=== PATIENT | female | born 1970 | race Caucasian/White ===

== ENCOUNTER → 2021-01-07 10:09 | Outpatient (CLI) | payer MEDICARE, SELFPAY | PROVIDERS: Visit Provider Nurse Practitioner | DX: Z20.822 Contact with and (suspected) exposure to COVID-19 (principal) | CPT/HCPCS: C9803; U0003; U0005 ==

== ENCOUNTER 2022-09-09 18:59 | Emergency (ER) | payer MEDICAID, SELFPAY ==
[2022-09-09 19:00] VITALS: BP 115/70; PULSE 87; RESP 18; TEMP 36.7; O2SAT 98; BMI 27.4
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
[2022-09-09 19:49] VITALS: BP 113/79; PULSE 82; RESP 18; TEMP 36.7; O2SAT 98
== END 2022-09-09 19:51 | disposition home or self-care (01) ==
PROVIDERS: Emergency Provider Emergency Medicine
DX: S46.002A Unspecified injury of muscle(s) and tendon(s) of the rotator cuff of left shoulder, initial encounter (principal); V89.2XXA Person injured in unspecified motor-vehicle accident, traffic, initial encounter; F17.200 Nicotine dependence, unspecified, uncomplicated
CPT/HCPCS: 73030; 96372; 99283; 99284

== ENCOUNTER 2024-12-15 16:19 | Emergency (ER) | payer OTHER, SELFPAY ==
--- NOTE | 2024-12-15 16:23 | ED_ITS ---
<Statement entered by Tarsha Corbett DO - 12/16/24 19:59> I was consulted by the JOSH, and we discussed the complexity of problems being addressed. I approve the treatment and management plan for this patient's care in the emergency department, thus performing a substantial portion of the medical decision making. Tarsha Corbett DO Discharge Plan Disposition Patient Disposition: Home, Self-Care Condition: Good Prescriptions Prescriptions: No Action ketorolac 10 mg Tablet 10 mg PO Q6H PRN (Reason: pain.) Qty: 8 0RF Referrals Follow up/Referrals: Provider,Referral, MD [Primary Care Provider, Medical] - See instructions Activity Restrictions/Add. Instructions Additional Instructions/Restrictions: I recommend rest ice ibuprofen as needed for symptomatic relief, please return to the emergency department with any worsening signs or symptoms. Clinical Impressions Clinical Impression: Injury of forearm, right Instructions Patient Instructions: DI for Forearm Muscle Strain Print Language Print Language: Turkmen Discharge ED Provider: Tarsha Corbett General Adult HPI General Chief complaint: Extremity Injury, Upper Stated complaint: AO Fall 12/14/24 12:00; R arm Knot /Swelling Time Seen by Provider: 12/15/24 16:21 Mode of Arrival: Ambulatory Source of Information: Patient Limitations: No Limitations History of Present Illness HPI narrative: 54-year-old female presents the emergency department with a right forearm injury/pain after falling yesterday while exercising , patient striking head, denies any LOC, denies any other upper or lower extremity injury, patient endorses pain in her right forearm, with some extension down to her fingers, she endorses some numbness , at times, denies any radicular type symptomatology, denies any right shoulder pain neck pain, mid back pain or low back pain, patient has any fever chills chest pain shortness of breath nausea vomiting constipation diarrhea, no real radicular type symptomatology, no saddle anesthesia, no urinary bladder or bowel dysfunction, patient is a current everyday smoker, denies any alcohol use, occasionally utilizes marijuana, other past medical history is consistent with hypertension, prediabetes, hyperlipidemia, polyneuropathy on gabapentin. Initial triage vitals are unremarkable. Please note that above description of symptoms, in this electronic medical record under categorization of recalled from ER triage doctor by RN are reflective of an initial nursing assessment, however, is not reflective of my full history and physical exam that was personally taken and clarified. Consequentially, this preceding description of symptoms, which may include the patient's categorized chief complaint in the EMR, do not reflect my personal clinical impression, and the ultimate description of history of present illness and patient stated complaints should be deferred to this section of the note. Unless stated otherwise or congruent with this section of the note, additional signs, symptoms, or incongruence should be interpreted as inaccurate with my clinical impression. Onset (ago): day(s) Related Data Previous Rx's ?Medication ?Instructions ?Recorded ketorolac 10 mg tablet 10 mg PO Q6H PRN pain. #8 ta bs 09/09/22 Allergies Allergy/AdvReac Type Severity Reaction Status Date / Time No Known Allergies Allergy Verified 09/09/22 19:21 [facility] Disclaimer: The information contained in this section may have been updated after the johnathon palacio was seen, as this information can be updated by other users. Social History Smoking Status: Current every day smoker alcohol intake: current current occupational status: other Travel in the last 8 weeks?: None ROS Obtained: Yes All systems reviewed & no additional complaints except as documented Physical Exam General General appearance: alert and in no apparent distress Head Head exam: atraumatic and normocephalic Eye Eye exam: Present PERRL and EOMI ENT ENT exam: Present mucous membranes moist Neck Neck exam: Present normal inspection Chest Chest inspection: Present normal inspection and symmetric chest wall rise Respiratory Respiratory exam: Present normal lung sounds bilaterally; Absent respiratory distress Cardiovascular Cardiovascular exam: Present regular rate and normal rhythm Abdominal Exam Abdominal exam: Present soft; Absent tenderness Extremities Exam Extremities exam: Present normal inspection, full ROM, tenderness and other (Some abrasions noted over the lateral forearm, there is pain to palpation to the dorsal forearm area, patient moves extremities to command, good finger opposition, otherwise neurovascular intact) Neurological Exam Neurological exam: Present alert and oriented X3 Psychiatric Psychiatric exam: Present normal affect Skin Skin exam: Present warm and dry Medical Decision Making Medical Records Medical records reviewed: Yes I reviewed the patient's medical records. Screening: Per USPSTF and CDC recommendations, given the prevalence of disease in our region, it is our hospital?s policy to screen for HIV and viral Hepatitis for all patients aged 18 and over and those with ongoing risk factors. Nicola Inquiry Pt receiving controlled substance: No Nicola was queried for this patient: No Vital Signs: 12/15/24 16:29 12/15/24 16:35 Temperature 97.5 F L 97.5 F L Temperature Source Oral Pulse Rate 92 H Pulse Rate [Right] 92 H Respiratory Rate 18 18 Blood Pressure 112/70 Blood Pressure [Right Arm] 112/70 Blood Pressure Mean [Right Arm] 84 Blood Pressure Source Automatic Cuff Blood Pressure Source [Right Arm] Automatic Cuff Blood Pressure Position Sitting Blood Pressure Position [Right Arm] Sitting 02 Sat by Pulse Oximetry 97 97 Oxygen Delivery Method Room Air Room Air Orders (Tests/Meds): ORDERS Category Date Time Status XR elbow RT min 3V Stat Exams 12/15/24 16:32 Completed XR forearm RT 2V Stat Exams 12/15/24 16:31 Completed Medical Decision Narrative: 54-year-old female presents the emergency department with a fall and right forearm injury, differential diagnose include but not limited to, right arm sprain/strain, elbow dislocation, forearm fracture, elbow fracture, soft tissue injury, contusion among others. I discussed this patient's case with the attending physician Dr. Corbett. Will obtain x-rays of the elbow and forearm on the right, patient has no pain to palpation to her wrist, has good range of motion, no pain palpation to the angers, otherwise neurovascular intact, no overt numbness or tingling no sensation deficit. I reviewed the patient's right elbow x-ray, right forearm x-ray along the corresponding radiologic reports, old dystrophic calcifications versus posttraumatic ossicle at the lateral epicondyle distal humerus, prominent osteophyte formation of the coronoid process of the ulna. Right forearm x-ray is notable for no acute findings. I discussed the results with the patient at the bedside patient voiced understanding and agreement with the current treatment plan/discharge plan. Recommend ice ibuprofen other anti-inflammatory medications as needed for symptomatic relief. Strict ED return precautions were discussed. Critical Care Critical Care Time Critical Care Time: No
[2024-12-15 16:29] VITALS: BP 112/70; PULSE 92; RESP 18; TEMP 36.4; O2SAT 97; BMI 25.6
--- NOTE | 2024-12-15 16:31 | XR_ITS ---
PROCEDURE INFORMATION: Exam: XR Right Forearm Exam date and time: 12/15/2024 4:39 PM Age: 54 years old Clinical indication: Pain; Lower or forearm; Right; Additional info: Fall right forearm pain TECHNIQUE: Imaging protocol: Radiologic exam of the right forearm. Views: 2 views. COMPARISON: CR XR ELBOW RT MIN 3V 12/15/2024 4:39 PM FINDINGS: Bones/joints: Normal. Soft tissues: Normal. IMPRESSION: No acute findings.
--- NOTE | 2024-12-15 16:32 | XR_ITS ---
PROCEDURE INFORMATION: Exam: XR Right Elbow Exam date and time: 12/15/2024 4:39 PM Age: 54 years old Clinical indication: Injury or trauma; Fall; Blunt trauma (contusions or hematomas); Elbow; Right; Additional info: Fall right elbow pain TECHNIQUE: Imaging protocol: Radiologic exam of the right elbow. Views: 3 or more views. COMPARISON: CR XR FOREARM RT 2V 12/15/2024 4:39 PM FINDINGS: Bones/joints: Old dystrophic calcifications versus posttraumatic ossicle at the lateral epicondyle distal humerus. Prominent osteophyte formation of the coronoid process of the ulna. Soft tissues: Normal. IMPRESSION: 1. Old dystrophic calcifications versus posttraumatic ossicle at the lateral epicondyle distal humerus. 2. Prominent osteophyte formation of the coronoid process of the ulna.
[2024-12-15 16:35] VITALS: BP 112/70; PULSE 92; RESP 18; TEMP 36.4; O2SAT 97
--- OUTSIDE RECORDS SUMMARY | 2024-12-15 16:49 | XMS_ITS | Clinical Summary ---
Author Organization [facility] Address [address] [place] [address] Care Team Providers Care Envelope Stuffer Name Role Phone Margarita Perez APRN Primary Care Provider [phone] Allergies Active Allergy Reactions Criticality Noted Date Comments Elemental Sulfur 01/11/2016 Medications lisinopril (PRINIVIL,ZESTRI L) 10 MG tablet Take 10 mg by mouth Daily. Active sitaGLIPtin (JANUVIA) 50 MG tablet Take 50 mg by mouth Daily. Active ranitidine (RANITIDINE ACID WEB ARCHITECT) 75 MG tablet Take 75 mg by mouth 2 (Two) Times a Day. Active Loratadine-Pseud oephedrine (ALLERGY/CONGEST ION RELIEF PO) Take by mouth. Active montelukast (SINGULAIR) 10 MG tablet Take 10 mg by mouth Every Night. Active Active Problems Problem Noted Date Diagnosed Date Stress incontinence 03/29/2016 Family History Medical History Relation Name Comments Cancer Father Diabetes Father Heart disease Father Hypertension Father Heart disease Maternal Grandfather Hypertension Maternal Grandfather Cancer Maternal Grandmother breast Diabetes Mother Cancer Paternal Uncle colon Diabetes Sister Relation Name Status Comments Father Maternal Grandfather Maternal Grandmother Mother Paternal Uncle Sister Social History Tobacco Use Types Packs/Day Years Used Date Smoking Tobacco: Every Day Cigarettes Smokeless Tobacco: Never Alcohol Use Standard Drinks/Week Comments No 0 (1 standard drink = 0.6 oz pur e alcohol) Abuse Screen Answer Date Recorded Unsafe at Home or Work/School Not on file Feels Threatened by Someone? Not on file 05/2023 Does Anyone Keep You from Co ntacting Others or Doint Things Outside the Home? Not on file 02/02/2024 Physical Sign of Abuse Present Not on file 1 04/03/2023 Housing Stability Answer Date Recorded Current Living Arrangements Not on file 12/31 Potentially Unsafe Housing Conditions Not on kosta e 01/10/2023 Family and Community Support Answer Juan Carlos e Recorded Help with Day-to-Day Activities Not on file 01/10/2023 Lonely or Isolated Not on file 01/10/2023 Employment Answer Date Recorded Do you want help finding or keeping work or a yimi b? Not on file 01/10/2023 Disabilities Answer Date Recorded Concentrating, Remembering, or Making Decisions Difficulty Not on file 01/10/2023 Doing Errands Independently Difficulty Not on fi le 01/10/2023 Education Answer Date Recorded Help with school or training? Not on file Preferred Language Not on file 01/10/2023 Comments No Sex and Gender Information Value Date Recorded Sex Assigned at Not on file Legal Sex Female 4:52 PM EST Gender Identity Not on file Sexual Orientation Not on file Last Filed Vital Signs Vital Sign Reading Time Taken Comments Blood Pressure 123/71 01/29/2023 5:30 PM EDT Pulse 80 01/29/2023 5:30 PM EDT Temperature 37.2 C (98.9 F) 01/29/2023 2:50 PM EDT Respiratory Rate 20 01/29/2023 3:32 PM EDT Oxygen Saturation 97% 01/29/2023 5:30 PM EDT Inhaled Oxygen Concentration - - Weight 65.8 kg (145 lb) 01/29/2023 2:50 PM EDT Height 160 cm (5' 3 ) 01/29/2023 2:50 PM EDT Body Mass Index 25.69 01/29/2023 2:50 PM EDT Plan of Treatment Upcoming Encounters Date Type Department Care Team (Late st Contact Info) Description 12/22/2024 8:15 AM EDT Appointment [facility] [address] [facility] [facility] [address] [address] [place] [address] 12/22/2024 9:45 AM EDT Appointment [facility] [address] [place] [address] Health Maintenance Due Date Last Done Comments Annual Gynecologic Pelvic an d Breast Exam 1968 COLOGUARD 2013 COLON CANCER SCREENING 5 YEA R SIGMOIDOSCOPY 2013 COLONOSCOPY [address] CANCER SCREENING 2013 CT COLONOGRAPHY 2013 FECAL OCCULT BLOOD TEST 2013 FIT Testing (1 year) 2013 ZOSTER VACCINE (1 of 2) 2018 MAMMOGRAM 04/08/2020 04/08/2018 TDAP/TD VACCINES (2 - Td or Tdap) 08/21/2022 013 ANNUAL PHYSICAL 01/31/2023 HEPATITIS C SCREENING 01/31/2023 COVID-19 Vaccine ( - season) 2024 INFLUENZA VACCINE 12/31/2024 12/18/2022, , 03/04/2022 Pneumococcal Vaccine 50+ Completed 12/18/2022, 05/31 Procedures Procedure Name Priority Date/Time Associated Diagnosis Comments SCANNED - MAMMO 04/08/2018 from Last 3 Months or Most Recently Relevant to Health Maintenance Results * SCANNED - MAMMO (04/08/2018) Anatomical Region Laterality Modality Other Carl Kaba MD CHART REVIEW TABS Final Result from Last 3 Months or Most Recently Relevant to Health Maintenance Insurance [address] [place] [address] [facility] Care Teams Envelope Stuffer Relationship Specialty Start Date End Date Margarita Perez APRN [address] [phone] PCP - General 02/20/15
--- OUTSIDE RECORDS SUMMARY | 2024-12-15 16:49 | XMS_ITS | Patient Health Record ---
Author Organization [facility] Address [address] [place] [address] Care Team Providers Care Intelligence Analyst Name Role Phone [facility] Primary Care Provider Un available Leland Pedroza Unavailable [phone] Allergies Allergen (clinical drug ingredient) Drug/Non Drug Allergy documented on EMR Reaction Allergy Type Onset Date Status sulfa Unknown Drug Allergy Active Reason For Referral No Information Medications Medication SIG (Take, Route, Frequency, Duration) Notes Start Date End Date Status tylenol 3 Active Flonase 50 MCG/ACT 2 spray in each nost ril Nasally Once a day; Duration: 30 day(s) 07/23/2014 Active PriLOSEC 40 MG 1 capsule Orally A.M .; Duration: 30 day(s) 06/17/2015 Active Astelin 137 MCG/SPRAY 2 sprays in each n ostril Nasally Twice a day; Duration: 30 day(s) 07/23/2014 Active Ativan 2 MG 1 tablet 1 1/2 hours prior to test Orally ud; Duration: 1 day 03/05/2015 Active Singulair Active Flonase 50 MCG/ACT 2 spray in each nost ril Nasally Once a day; Duration: 30 day(s) 10/08/2014 Active Madina Active PriLOSEC 40 MG 1 capsule Orally Onc e a day; Duration: 30 day(s) 10/08/2014 Active Ranitidine HCl 300 MG 1 capsule at bedti me Orally Once a day; Duration: 30 day(s) 12/30/2015 Active Ativan 2 MG 1 tablet Orally 1 1/ 2 hrs prior to test; Duration: 1 dose 02/05/2015 Active Vitamin B 12 Active Ativan 2 MG 1 tablet 1 1/2 hours prior to test Orally ud; Duration: 1 day 01/14/2015 Active B12 Liquid Health Booster Active Ativan 1 MG 1 tablet 1 1/2 hours prior to test Orally ud; Duration: 1 day 12/17/2014 Active Lisinopril prn Active Razadyne Active Ativan 1 MG 1 tablet Orally 1 1/ 2 hrs prior to test; Duration: 1 day 10/08/2014 Active Naproxen Active Astelin 137 MCG/SPRAY 2 sprays in each n ostril Nasally Twice a day; Duration: 30 day(s) 10/08/2014 Active metFORMIN HCl Active Ativan 1 MG 1 tablet 1 1/2 hours prior to test Orally ud; Duration: 1 day 11/27/2014 Active Neurontin Active PriLOSEC 40 MG 1 capsule Orally Onc e a day; Duration: 30 day(s) 11/19/2014 Active Social History Tobacco Use: Social History Observation Description Date Details (start date - stop date) Current Smoker NA - NA Smoking Question Answer Notes Do you Smoke ? yes Problems Problem Type SNOMED Code ICD Code Onset Dates Problem Status W/U Status Risk Notes Problem Vertigo (779607178) Vertigo (R42) Active confir med Problem Sinus pain (J34.89) Active confirmed Problem Hoarseness (40460493) Hoarseness (R49.0) Active confirmed Problem Obstructive sleep apnea (57126974) Obstructive sleep apnea (G47.33) Active confirmed Problem Obstructive sleep apnea syndrome (00091278) STERLING (obstructive sleep apnea) (G47.33) Active confirmed Problem Tobacco abuse (3450710069) Tobacco abuse (Z72.0) Active confirmed Problem Macroglossia (57084553) Macroglossia (Q38.2) Active confirmed Problem Laryngopharyngeal reflux (476912033) LPRD (laryngopharyng eal reflux disease) (J38.7) Active confirmed Problem Hearing loss (21151863) Hearing loss, bilateral (H91.93) Active confirmed Problem Hypersomnia (45537016) Hypersomnia, unspecified (G47.10) Active confirmed Problem Chronic sinusitis (44162147) Other chronic sinusitis (J32.8) Active confirmed Problem Dysphagia (49163228) Other dysph agia (R13.19) Active confirmed Problem Dyspnea on exertion (05060919) Dyspnea on exertion (R06.09) Active confirmed Problem Daytime hypersomnia (21840318147946) Daytime hypersomnia (G47.19) Active confirmed Plan Of Treatment No Information Insurance Providers Payer Name Payer Address Payer Phone Subscriber Number Group Number Insured Name Patient Relationship to Insured Coverage Start Date Coverage End Date MEDICARE Cigna Gov Ser [address] [id number] Racquel Pemberton Self - patient is the insured Reveal Data [address] [address] [place] [address] [id number] Racquel Pemberton Self - patient is the insured Medical (General) History Medical History History ICD Code Thyroid Disease No hypertension No asthma Yes Diabetes No Diabetes Insulin Dependent No Heart Disease No Cancer No Lung Disease No kidney stones No Otalgia, bilateral Surgical History Surgery Date(Month/Year) 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
--- OUTSIDE RECORDS SUMMARY | 2024-12-15 16:49 | XMS_ITS | Clinical Summary ---
Author Organization [facility] Address [address] [place] [id number] Phone Care Team Providers Care Boilermaker Ship Name Role Phone Margarita Perez APRN Primary Care Provider [phone] Allergies Active Allergy Reactions Criticality Noted Date Comments Sulfa (Sulfonamide Antibiotics) Anaphylaxis High Medications lisinopril-hydro chlorothiazide (PRINZIDE;ZESTOR ETIC) 20-12.5 mg Oral Tablet Take 1 Tab by mouth daily. Active montelukast (SINGULAIR) 10 mg Oral Tablet Take 10 mg by mouth every evening. Active fexofenadine (KAREN) 180 mg Oral Tablet Take 180 mg by mouth daily. Active ranitidine (ZANTAC) 300 mg Oral Tablet Take 300 mg by mouth nightly. Active gabapentin (NEURONTIN) 800 mg Oral Tablet Take 800 mg by mouth 3 times daily. Active Medical History Medical History Date Comments Hypertension Diabetes mellitus (HCC) Social History Tobacco Use Types Packs/Day Years Used Date Smoking Tobacco: Every Day Cigarettes Smokeless Tobacco: Never Alcohol Use Standard Drinks/Week Comments No 0 (1 standard drink = 0.6 oz pur e alcohol) Comments Unknown Sex and Gender Information Value Date Recorded Sex Assigned at Not on file Legal Sex Female 8:06 PM EDT Gender Identity Not on file Sexual Orientation Not on file Obstetrics History Last Filed Vital Signs Vital Sign Reading Time Taken Comments Blood Pressure 114/71 12/25/2016 12:36 AM EDT Pulse 82 12/25/2016 12:36 AM EDT Temperature 36.3 C (97.4 F) 12/25/2016 12:36 AM EDT Respiratory Rate 18 12/25/2016 12:36 AM EDT Oxygen Saturation 100% 12/25/2016 12:36 AM EDT Inhaled Oxygen Concentration - - Weight 77.1 kg (170 lb) 12/25/2016 12:36 AM EDT Height 165.1 cm (5' 5 ) 12/25/2016 12:36 AM EDT Body Mass Index 28.29 12/25/2016 12:36 AM EDT Plan of Treatment Health Maintenance Due Date Last Done Comments Wellness Exam Medicare 11/29/1971 DTaP/TDaP/Td (1 - Tdap) 11/29/1987 Hepatitis B Vaccine (1 of 3 - 19+ 3-dose series) 11/29/1987 Cervical Cancer Screening 1989 Pap Smear 1989 HPV/Pap Cotest 1998 Breast Cancer Screening 2008 Cologuard 2013 Colon Cancer Screening 2013 Colonoscopy 2013 FIT 2013 Sigmoidoscopy 2013 Virtual Colonography 2013 Pneumococcal Vaccine 50+ (1 of 1 - PCV) 2018 Zoster (1 of 2) 2018 COVID-19 Vaccine (1 - 2023-2 5 season) 2024 Influenza Vaccine (#1) 2024 Meningococcal B Vaccine Aged Out No l onger eligible based on patient's age to complete this topic Insurance MEDICARE [place] PART A AND B [place] [address] Care Teams Boilermaker Ship Relationship Specialty Start Date End Date Margarita Perez APRN [address] [id number] PCP - General Nurse Practitioner-Family 12/25/16
--- NOTE | 2024-12-15 16:54 | PC.NURSE ---
Patient back from [facility]
[2024-12-15 17:48] VITALS: BP 113/68; PULSE 84; RESP 16; TEMP 36.9; O2SAT 98
== END 2024-12-15 17:51 | disposition home or self-care (01) ==
PROVIDERS: Emergency Provider Student in an Organized Health Care Education/Training Program
DX: S59.911A Unspecified injury of right forearm, initial encounter (principal); M79.631 Pain in right forearm; S50.811A Abrasion of right forearm, initial encounter; W19.XXXA Unspecified fall, initial encounter
CPT/HCPCS: 73080; 73090; 99283

== ENCOUNTER 2025-03-04 16:36 | Emergency (ER) | payer OTHER, SELFPAY ==
[2025-03-04 16:42] VITALS: BP 122/60; PULSE 80; RESP 18; TEMP 36.7; O2SAT 96; BMI 24.0
--- NOTE | 2025-03-04 16:57 | ED_ITS ---
<Statement entered by Derrick Keating MD - 03/04/25 18:47> I was consulted by the JOSH, and we discussed the complexity of the problems being addressed. I approved the treatment and management plan for this patient's care in the emergency department, thus performing a substantive portion of the medical decision making. Derrick Keating MD, MARIELENA, FACEP Discharge Plan Disposition Patient Disposition: Home, Self-Care Condition: Good Prescriptions Prescriptions: New cephalexin 500 mg capsule 500 mg PO Q6H 5 Days Qty: 20 0RF prednisone 20 mg tablet 40 mg PO DAILY 5 Days Qty: 10 0RF No Action albuterol sulfate 2.5 mg /3 mL (0.083 %) solution for nebulization inhalation Q8H PRN (DME) FreeStyle Lite Strips Strip See Rx Instructions miscellaneous TID Qty: 10 Rx Instructions: As directed aspirin 81 mg tablet,delayed release (DR/EC) 81 mg PO DAILY doxycycline monohydrate 100 mg tablet 100 mg PO DAILY spironolactone 25 mg tablet 25 mg PO DAILY levothyroxine 25 mcg tablet 25 mcg PO DAILY Loratadine-D 10-240 mg tablet extended release 24 hr 1 tab PO DAILY (DME) blood-glucose meter [FreeStyle Lite Meter] Kit See Rx Instructions .ROUTE .MEDSUPPLY Qty: 1 Patient Comments: [NO ORIGINAL SIG] Rx Instructions: As directed gabapentin 800 mg tablet 800 mg PO TID levetiracetam 250 mg tablet 250 mg PO BID omeprazole 20 mg capsule,delayed release(DR/EC) 20 mg PO DAILY montelukast 10 mg tablet 10 mg PO DAILY mirtazapine 15 mg tablet 15 mg PO QPM ergocalciferol (vitamin D2) [Vitamin D2] 1,250 mcg (50,000 unit) capsule 1,250 mcg PO WEEKLY levofloxacin 750 mg tablet 750 mg PO DAILY albuterol sulfate [Ventolin HFA] 90 mcg/actuation HFA aerosol inhaler inhalation ferrous sulfate 325 mg (65 mg iron) tablet,delayed release (DR/EC) PO lisinopril 2.5 mg tablet 2.5 mg PO DAILY metoclopramide HCl 10 mg tablet PO rosuvastatin 40 mg tablet 40 mg PO DAILY (DME) lancets [Easy Comfort Lancets] 30 gauge misc See Rx Instructions .ROUTE .MEDSUPPLY Qty: 100 Patient Comments: [NO ORIGINAL SIG] Rx Instructions: As directed dapagliflozin propanediol [Farxiga] 10 mg tablet 10 mg PO DAILY potassium chloride 20 mEq tablet extended release 20 meq PO DAILY Ozempic 0.25 mg or 0.5 mg (2 mg/3 mL) pen injector SQ Patient Comments: [NO ORIGINAL SIG] ketorolac 10 mg Tablet 10 mg PO Q6H PRN (Reason: pain.) Qty: 8 0RF Referrals Follow up/Referrals: Kiran Eli MD [Referring, Medical] - See instructions Provider,MD Erik [Primary Care Provider, Medical] - See instructions Activity Restrictions/Add. Instructions Additional Instructions/Restrictions: Please return to the emergency department with any worsening signs or symptoms. Please utilize [id number] antihistamines for your itching, such as Claritin, Zyrtec or Benadryl you can continue to use your topical hydrocortisone cream. Please utilize your steroids as prescribed take them daily with food for 5 days. Please utilize your antibiotic as prescribed daily with food for 5 days. Please follow-up with dermatology in the upcoming days/weeks. Clinical Impressions Clinical Impression: Contact dermatitis of right thigh Instructions Patient Instructions: Contact Dermatitis, DI for Cellulitis in Adults Print Language Print Language: East Timorese Discharge ED Provider: Derrick Keating General Adult HPI General Chief complaint: Skin/Abscess/Foreign Body Stated complaint: sent by express care, rash on R thigh Time Seen by Provider: 03/04/25 16:50 Mode of Arrival: Ambulatory Source of Information: Patient Description of Symptoms (Recalled from ER Triage Doc. by RN): PATIENT PRESENTS TO ED FOR A RASH BROKEN OUT ON RIGHT THIGH. STATES THIS APPEARED YESTERDAY. REPORTS CORTISONE CREAM MAKES IT QUIT ITCHING TEMPORARILY. NO NEW SOAPS, DETERGENTS, LOTIONS, ETC. History of Present Illness HPI narrative: 54-year-old female presents the emergency department at the request of her urgent care with an anterior, medial lateral erythematous, maculopapular rash, that is not hot to touch only on the right thigh.That patient noticed/plan started yesterday, she describes pruritus and burning , sensation, denies any mucous membrane involvement, denies any other area of the body affected to include the genitourinary area, denies any fever chills chest pain shortness of breath nausea vomiting constipation diarrhea no abdominal pain, no urinary symptomatology, patient denies any new medications, no known antibiotic use, 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 Initial triage vitals are unremarkable Please note that above description of symptoms, in this electronic medical record under categorization of recalled from ER triage doctor by RN are reflective of an initial nursing assessment, however, is not reflective of my full history and physical exam that was personally taken and clarified. Consequentially, this preceding description of symptoms, which may include the patient's categorized chief complaint in the EMR, do not reflect my personal clinical impression, and the ultimate description of history of present illness and patient stated complaints should be deferred to this section of the note. Unless stated otherwise or congruent with this section of the note, additional signs, symptoms, or incongruence should be interpreted as inaccurate with my clinical impression. Onset (ago): day(s) Related Data Home Medications ?Medication ?Instructions ?Recorded ?Confirmed albuterol sulfate 2.5 mg/3 mL mg inhalation Q8H PRN 03/04/25 (0.083 %) solution for nebulization albuterol sulfate 90 mcg/actuation inhalation 03/04/25 03/04/25 aerosol inhaler (Ventolin HFA) aspirin 81 mg tablet,delayed 81 mg PO DAILY 03/04/25 1 05/05/24 release blood sugar diagnostic (FreeStyle #10 ea 03/04/2506/24 Lite Strips) blood-glucose meter (FreeStyle #1 ea 03/04/25 03/04/25 Lite Meter kit) dapagliflozin propanediol 10 mg 10 mg PO DAILY 5 03/04/25 tablet (Farxiga) doxycycline monohydrate 100 mg 100 mg PO DAILY 5 03/04/25 tablet ergocalciferol (vitamin D2) 1,250 1,250 mcg PO WEEKLY 03/04/25 03/04/25 mcg (50,000 unit) capsule (Vitamin D2) ferrous sulfate 325 mg (65 mg mg PO 03/04/25 03/04/25 iron) tablet,delayed release gabapentin 800 mg tablet 800 mg PO TID 03/04/2503/04 lancets 30 gauge (Easy Comfort #100 ea 03/04/25 Lancets) levetiracetam 250 mg tablet 250 mg PO BID 03/04/2506/24 levofloxacin 750 mg tablet 750 mg PO DAILY 03/04/25 levothyroxine 25 mcg tablet 25 mcg PO DAILY 03/04/25 1 05/05/24 lisinopril 2.5 mg tablet 2.5 mg PO DAILY 03/04/2506/24 loratadine-pseudoephedrine ER 10 1 tab PO DAILY 03/04/25 mg-240 mg tablet,extended [id number] (Loratadine-D) metoclopramide HCl 10 mg tablet mg PO 03/04/25 5 mirtazapine 15 mg tablet 15 mg PO QPM 03/04/25 montelukast 10 mg tablet 10 mg PO DAILY 03/04/2506/24 omeprazole 20 mg capsule,delayed 20 mg PO DAILY 03/04/25 release potassium chloride 20 mEq 20 meq PO DAILY 03/04/2506/24 tablet,extended release rosuvastatin 40 mg tablet 40 mg PO DAILY 03/04/2506/24 semaglutide 0.25 mg or 0.5 mg (2 mg SQ 03/04/25 mg/3 mL) subcutaneous pen injector (Ozempic) spironolactone 25 mg tablet 25 mg PO DAILY 03/04/25 Previous Rx's ?Medication ?Instructions ?Recorded ketorolac 10 mg tablet 10 mg PO Q6H PRN pain. #8 ta bs 09/09/22 cephalexin 500 mg capsule 500 mg PO Q6H 5 days #20 cap s 03/04/25 prednisone 20 mg tablet 40 mg (2 x 20 mg) PO DAILY 5 days 03/04/25 #10 tabs Allergies Allergy/AdvReac Type Severity Reaction Status Date / Time Sulfa (Sulfonamide Allergy Vomiting Verified 03/04/25 14:56 Antibiotics) [facility] Disclaimer: The information contained in this section may have been updated after the patient was seen, as this information can be updated by other users. Social History Smoking Status: Current every day smoker alcohol intake: current current occupational status: other Travel in the last 8 weeks?: None Have you lived/traveled outside US in past 30 days?: No Contact w/someone who lives/traveled outside US past 30 days?: No Exposure to someone with infectious disease in past 14 days?: No Do you have a fever (greater than 100.4 F or 38 C)?: No Have you tested positive for COVID-19?: No Exposed to someone with COVID-19 in past 14 days?: No Do you have a sore throat?: No Do you have a cough?: No Do you have any weakness?: No Do you have any diarrhea?: No Are you experiencing any unusual bleeding?: No Do you have any muscle aches/pain?: No Do you have any abdominal pain?: No Are you experiencing loss of taste or smell?: No ROS Obtained: Yes All systems reviewed & no additional complaints except as documented Physical Exam General General appearance: alert and in no apparent distress Head Head exam: atraumatic and normocephalic Eye Eye exam: Present PERRL and EOMI ENT ENT exam: Present mucous membranes moist Neck Neck exam: Present normal inspection Chest Chest inspection: Present normal inspection and symmetric chest wall rise Respiratory Respiratory exam: Present normal lung sounds bilaterally; Absent respiratory distress Cardiovascular Cardiovascular exam: Present regular rate and normal rhythm Abdominal Exam Abdominal exam: Present soft; Absent tenderness Extremities Exam Extremities exam: Present normal inspection Neurological Exam Neurological exam: Present alert and oriented X3 Psychiatric Psychiatric exam: Present normal affect Skin Skin exam: Present warm, dry, erythema and other (Maculopapular rash that is involving the anterior medial lateral aspect of the patient's right thigh no vesicular component, no pustular component, no abscess formation, not hot to touch sensation) Medical Decision Making Medical Records Medical records reviewed: Yes I reviewed the patient's medical records. Screening: Per USPSTF and CDC recommendations, given the prevalence of disease in our region, it is our hospital?s policy to screen for HIV and viral Hepatitis for all patients aged 18 and over and those with ongoing risk factors. Nicola Inquiry Pt receiving controlled substance: No Nicola was queried for this patient: No Vital Signs: 03/04/25 16:42 03/04/25 16:42 Temperature 98.1 F 98.1 F Temperature Source Oral Pulse Rate 80 Pulse Rate [Right] 80 Respiratory Rate 18 18 Blood Pressure 122/60 Blood Pressure [Right Arm] 122/60 Blood Pressure Mean [Right Arm] 80 02 Sat by Pulse Oximetry 96 96 Orders (Tests/Meds): ED MEDICATIONS Discontinued Medications Generic Name Dose Route Start Last Admin Trade Name [place] PRN Reason Stop Dose Admin Loratadine 10 mg 03/04/25 17:31 Loratadine 10mg Tablet PO 03/04/25 17:32 ONCE ONE Prednisone 60 mg 03/04/25 17:32 Prednisone 20mg Tab PO 03/04/25 17:33 ONCE ONE Medical Decision Narrative: 54-year-old female presents to the emergency department with a rash that is maculopapular erythematous on the patient's right thigh, see HPI for detailed past medical history, differential diagnose include but not limited to, cellulitis, atopic dermatitis, irritant contact dermatitis, contact dermatitis, among others I discussed this patient's case with the attending physician Dr. Keating he saw and examined the patient as well. Patient has no other systemic signs or symptoms, I have low concern for drug eruption rash such as Nicholas-Sean syndrome, TEN and others, will treat the patient for cellulitis versus irritant contact dermatitis as patient's lesion is only localized to the right thigh, no other areas are affected no genitourinary areas affected no mucous membrane involvement, will give the patient 10 mg c etirizine, and 60 mg p.o. prednisone here in the emergency department. Will send the patient home with 40 mg p.o, for 5 days, as well as cephalexin 500 mg p.o. Q6 for 5 days. As well as dermatology follow-up. Patient was given strict ED return precautions. Patient voiced understanding and agreement with the current treatment plan/discharge plan. Critical Care Critical Care Time Critical Care Time: No
--- OUTSIDE RECORDS SUMMARY | 2025-03-04 16:59 | XMS_ITS | Clinical Summary ---
Author Organization [employer] ([place], [place], [place], [place], [place]) Address [address] [place] [address] Care Team Providers Care Business Data Analyst Name Role Phone Unavailable Primary Care Provider Unavailabl e Allergies Active Allergy Reactions Criticality Noted Date Comments Sulfa (Sulfonamide Antibiotics) 10/2022 Medications diclofenac 1 % Gel Apply 4 g topically 4 (four) times daily as needed for Arthritis pain. 3 Active Ventolin HFA 90 mcg/actuation inhaler Inhale 2 puffs by mouth via inhaler every 4 (four) hours as needed for Shortness of Breath. 3 Active fluticasone propionate (FLONASE) 50 mcg/actuation nasal spray 2 sprays by Nasal route daily. 3 Active gabapentin (NEURONTIN) 800 MG tablet Take 1 tablet (800 mg total) by mouth 3 (three) times daily. Max Daily Amount: 2,400 mg 3 Active metFORMIN (GLUCOPHAGE) 1000 MG tablet Take 1 tablet (1,000 mg total) by mouth 2 (two) times daily. 3 Active montelukast (SINGULAIR) 10 mg tablet Take 1 tablet (10 mg total) by mouth daily. 3 Active nicotine (NICODERM CQ) 21 mg/[address] 1 patch onto the skin daily as needed. 3 Active aspirin 81 MG EC tablet Take 1 tablet (81 mg total) by mouth daily. 3 Active fexofenadine (KAREN) 180 MG tablet Take 1 tablet (180 mg total) by mouth daily. Active lisinopriL (PRINIVIL,ZESTR IL) 10 MG tablet Take 1 tablet (10 mg total) by mouth daily. 3 Active rosuvastatin (CRESTOR) 20 MG tablet Take 1 tablet (20 mg total) by mouth daily. 3 Active hydroCHLOROthia zide (HYDRODIURIL) 25 MG tablet Take 1 tablet (25 mg total) by mouth every morning. 3 Active cyanocobalamin (VITAMIN B-12) 1000 MCG tablet Take 2 tablets (2,000 mcg total) by mouth daily. Active Active Problems Problem Noted Date Diagnosed Date Syncope 12/08/2022 COPD (chronic obstructive pulmonary disease) 10/2022 Diabetes 12/08/2022 Hypertension 12/08/2022 Syncope and collapse 12/08/2022 Social History Tobacco Use Types Packs/Day Years Used Date Smoking Tobacco: Every Day Cigarettes 1 41 Passive Smoke Exposure: Current Smokeless Tobacco: Former Tobacco Cessation:Ready to Q uit: No; Counseling Given: No Alcohol Use Standard Drinks/Week Comments Never 0 (1 standard drink = 0.6 oz pur e alcohol) PRAPARE - Transportation Answer Date Re corded In the past 12 months, has l ack of transportation kept you from medical appointments or from getting medications? No 12/09/2022 Lack of Transportation (Non-Medical) Not on file 12/09/2022 Food Insecurity Answer Date Recorded Food run out past 12 months Not on file 04/02 Food did not last past 12 months Not on file 04/20/2023 Employment Answer Date Recorded Help finding and keeping a job Not on file 0 04/20/2023 Family and Community Support Answer Juan Carlos e Recorded Help with Day to Day Activities Not on file 04/20/2023 Feeling Lonely or Isolated Not on file 04/20 Educational Attainment Answer Date Carlos rded Speak language other than Latvian at home Not on file 04/20/2023 Want help with school or training Not on file 04/20/2023 Substance Use Answer Date Recorded Used prescription meds for non-medical reasons N ot on file 04/20/2023 Used illegal drugs past 12 months Not on file 04/20/2023 Comments Unknown Sex and Gender Information Value Date Recorded Sex Assigned at Not on file Legal Sex Female 9:09 AM CDT Gender Identity Not on file Sexual Orientation Not on file Last Filed Vital Signs Vital Sign Reading Time Taken Comments Blood Pressure 134/67 12/10/2022 7:05 AM EDT Pulse 73 12/10/2022 7:05 AM EDT Temperature 36.4 C (97.6 F) 12/10/2022 7:05 AM EDT Respiratory Rate 18 12/10/2022 7:05 AM EDT Oxygen Saturation 98% 12/10/2022 7:05 AM EDT Inhaled Oxygen Concentration - - Weight 73 kg (161 lb) 12/08/2022 8:35 PM EDT Height 161 cm (5' 3.39 ) 12/08/2022 8:35 PM EDT Body Mass Index 28.17 12/08/2022 8:35 PM EDT Plan of Treatment Health Maintenance Due Date Last Done Comments CT Colonography 1968 Colonoscopy 1968 Colorectal Cancer Screening 1968 Diabetic Kidney Health Evaluation (KED) 1968 FOBT/FIT 1968 Fit-DNA (Cologuard) 1968 Sigmoidoscopy 1968 Diabetic Eye Exam 1978 Depression Screening (12+) 1980 HIV Screening 11/29/1983 Hepatitis C Screening 1986 Pap Smear 1989 Breast Cancer Screening 2008 Lipid Panel 2013 Pneumococcal 50+ years (2 of 2 - PCV) 06/14/2017 Shingles Vaccine (Zoster) (1 of 2) 2018 DTAP/TDAP/TD VACCINES (2 - Td or Tdap) 08/21/2022 Hemoglobin A1C 12/08/2022 Tobacco Cessation Counseling and Screening (12+) 12/0912/09/2022 COVID-19 VACCINE (1 - season) 2024 Influenza Vaccine (#1) 2024 03/04/2022 Insurance [facility] Advance Directives For more information, please contact: [phone] * Full Code (Latest Code Status on File) Date Activated Date Inactivated Comments 12/08/2022 9:58 PM 12/10/2022 11:33 AM
--- OUTSIDE RECORDS SUMMARY | 2025-03-04 16:59 | XMS_ITS | Clinical Summary ---
Author Organization [facility] Address [address] [place] [address] Care Team Providers Care Airline Operations Agent Name Role Phone Margarita Perez APRN Primary Care Provider [phone] Allergies Active Allergy Reactions Criticality Noted Date Comments Elemental Sulfur 01/11/2016 Medications lisinopril (PRINIVIL,ZESTRI L) 10 MG tablet Take 1 tablet by mouth Daily. Active sitaGLIPtin (JANUVIA) 50 MG tablet Take 50 mg by mouth Daily. Active ranitidine (RANITIDINE ACID DIALYSIS REGISTERED NURSE) 75 MG tablet Take 75 mg by mouth 2 (Two) Times a Day. Active Loratadine-Pseud oephedrine (ALLERGY/CONGEST ION RELIEF PO) Take by mouth. Active montelukast (SINGULAIR) 10 MG tablet Take 10 mg by mouth Every Night. Active Active Problems Problem Noted Date Diagnosed Date Stress incontinence 03/29/2016 Encounters Date Type Department Care Team Description 12/22/2024 9:38 AM EDT - 12/22/2024 11:59 PM EDT Hospital Encounter [facility] [address] [place] [address] Discharge Disposition: Home or Self Care 12/22/2024 7:59 AM EDT - 12/22/2024 11:59 PM EDT Hospital Encounter [facility] [address] [place] [address] Precordial chest pain Discharge Disposition: Home or Self Care 12/22/2024 Travel from Last 3 Months Family History Medical History Relation Name Comments [...] 01/29/2023 2:50 PM EDT Plan of Treatment Health Maintenance [...] ANNUAL PHYSICAL 01/31/2023 HEPATITIS C SCREENING 01/31/2023 INFLUENZA VACCINE 10/31/2024 12/18/2022, , 03/04/2022 Pneumococcal Vaccine 50+ Completed 12/18/2022, 05/31 Procedures Procedure Name Priority Date/Time Associated Diagnosis Comments STRESS TEST, REGADENOSON W MYOCARDIAL PERFUSION SPECT (MULTI STUDY) Routine 12/22/2024 10:18 AM EDT Precordial chest pain SCANNED - MAMMO 04/08/2018 from Last 3 Months or Most Recently Relevant to Health Maintenance Results * STRESS TEST, REGADENOSON W MYOCARDIAL PERFUSION SPECT (MULTI STUDY) (12/22/2024 10:18 AM EDT) CV REST NUCLEAR ISOTOPE DOSE 9.9 mCi CV STRESS PROTOCOL 1 Pharmacologic Stage 1 1.0 Duration Min Stage 1 1 Duration Sec Stage 1 0 Stress Dose Regadenoson Stage 1 0.40 Stress Comments Stage 1 10 sec bolus injection Stage 2 2.0 Duration Min Stage 2 1 Duration Sec Stage 2 0 Stage 3 3.0 Duration Min Stage 3 1 Duration Sec Stage 3 0 Stage 4 4.0 Duration Min Stage 4 1 Duration Sec Stage 4 0 Target HR (85%) 139 bpm Max. Pred. HR (100%) 164 bpm Exercise duration (min) 4 min Exercise duration (sec) 0 sec Estimated workload 1.0 METS Baseline HR 77 bpm Baseline BP 132/82 mmHg O2 sat rest 96 % HR Stage 1 84 O2 Stage 1 94 HR Stage 2 100 BP Stage 2 102/66 O2 Stage 2 98 HR Stage 3 112 O2 Stage 3 98 HR Stage 4 100 BP Stage 4 148/82 O2 Stage 4 97 Peak BP 148/82 mmHg O2 sat peak 94 % Recovery BP 132/80 mmHg Recovery O2 97 % Peak HR 112 bpm Recovery HR 86 bpm Percent Max Pred HR 68.29 % Percent Target HR 80 % BH CV STRESS NUCLEAR ISOTOPE DOSE 31.6 mCi Nuc Stress EF 76 % Anatomical Region Laterality Modality Nuclear Medicine Narrative 12/22/2024 2:55 PM EDT Patient reported SOB (SPO2 94%) as well as nausea during stress. Resolved prior to recovery. SR, occasional PVCs at baseline. No significant ST or T wave changes noted. Myocardial perfusion imaging indicates a normal myocardial perfusion study with no evidence of ischemia. Impressions are consistent with a low risk study. Left ventricular ejection fraction is hyperdynamic (Calculated EF > 70%). Findings consistent with a normal ECG stress test. Stress Findings No ECG evidence of myocardial ischemia. Negative clinical evidence of myocardial ischemia. Findings consistent with a normal ECG stress test. Study Impression Myocardial perfusion imaging indicates a normal myocardial perfusion study with no evidence of ischemia. Impressions are consistent with a low risk study. Rest Perfusion Defect 1 No rest myocardial perfusion defect noted. Stress Perfusion Defect 1 No stress myocardial perfusion defect noted. Nuclear Study Description A 1-day rest/stress protocol myocardial perfusion imaging study was performed. A 20 G peripheral IV was started in the right antecubital fossa. While at rest, the patient was injected intravenously with 9.9 mCi of technetium sestamibi at 08:05 EDT. Regadenoson (0.4 mg / 5 mL) was given intravenously over approximately 10 seconds followed by 5 mL flush of saline according to protocol. While at peak stress, the patient was injected intravenously with 31.6 mCi of technetium sestamibi at 09:50 EDT. The total amount of radiation received in the study is about 12.53 mSv. Rest ECG Baseline ECG of normal sinus rhythm noted at rest. PVCs noted. Stress ECG Stress ECG rhythm of sinus tachycardia noted. Arrhythmias during stress: occasional PVCs. Arrhythmias were not significant during stress. Stress ECG was interpretable. Ventricle Size / Description Left ventricular ejection fraction is hyperdynamic (Calculated EF > 70%). Normal LV cavity size. Normal LV wall motion noted. Normal RV cavity size. Nuclear Perfusion Images Overall image quality is good. Stress Description A pharmacological stress test was performed using regadenoson without low-level exercise. The patient reached the end of the protocol. The patient reported nausea and shortness of breath during the stress test. Blood pressure demonstrated a normal response to stress. Heart rate demonstrated a normal response to stress. Recovery ECG During recovery, the patient complained of no significant symptoms following stress. Sinus rhythm was noted during recovery. Arrhythmias during recovery: occasional PVC's. Arrhythmias were not significant during recovery. Test Gage Maker ECG Baxter us Efrain Emery MD CV STRESS ORDERABLES Final Result * SCANNED - MAMMO (04/08/2018) Anatomical Region Laterality Modality Other us Carl Kaba MD CHART REVIEW TABS Final Result from Last 3 Months or Most Recently Relevant to Health Maintenance Insurance [facility] Care Teams Airline Operations Agent Relationship Specialty Start Date End Date Margarita Perez APRN [address] [place] [address] PCP - General 02/20/15
--- OUTSIDE RECORDS SUMMARY | 2025-03-04 16:59 | XMS_ITS | Clinical Summary ---
Author Organization [facility] Address [address] [place] [id number] Phone Care Team Providers Care Brush Worker Name Role Phone Margarita Perez APRN Primary Care Provider [phone] Allergies Active Allergy Reactions Criticality Noted Date [...] of 2) 2018 COVID-19 Vaccine (1 - 2024-2 6 season) 2024 Influenza Vaccine (#1) 2024 Meningococcal B Vaccine Aged Out No l onger eligible based on patient's age to complete this topic Insurance MEDICARE [place] PART A AND B [facility] [id number] [facility] Care Teams Brush Worker Relationship Specialty Start Date End Date Margarita Perez APRN [id number] [id number] PCP - General Nurse Practitioner-Family 12/25/16
--- OUTSIDE RECORDS SUMMARY | 2025-03-04 16:59 | XMS_ITS | Referral Summary ---
Author Organization [employer] ([place], [place], [place], [place], [place]) Address [address] [place] [address] Care Team Providers Care Chair Car Attendant Name Role Phone Unavailable Primary Care Provider [...] Date Carlos rded Speak language other than Kazakh at home Not on file 04/20/2023 Want [...] Mass Index 28.17 12/08/2022 8:35 PM EDT Functional Status * Are you deaf or do you have serious difficulty hearing? Answer Date of Assessment Author No 12/10/2022 10:10 AM Jennifer Taylor RN * Are you blind or do you have serious difficulty seeing, even when wearing glasses? Answer Date of Assessment Author No 12/10/2022 10:10 AM Jennifer Taylor RN * Do you have serious difficulty walking or climbing stairs? Answer Date of Assessment Author No 12/10/2022 10:10 AM Jennifer Taylor RN * Do you have serious difficulty dressing or bathing? Answer Date of Assessment Author No 12/10/2022 10:10 AM Jennifer Taylor RN * Because of a physical, mental, or emotional condition, do you have serious difficulty doing errandsalone such as visiting the doctor? Answer Date of Assessment Author No 12/10/2022 10:10 AM Jennifer Taylor RN Mental Status * Because of a physical, mental, or emotional condition, do you have serious difficulty concentrating, remembering, or making decisions? (5 years old or older) Answer Entry Date Author No 12/10/2022 10:10 AM Jennifer Taylor RN Plan of Treatment Not on file Insurance [facility] Advance Directives For more information, please contact: [phone] * Full Code (Latest Code Status on File) Date Activated Date Inactivated Comments 12/08/2022 9:58 PM 12/10/2022 11:33 AM
[2025-03-04] MEDS: LORATADINE 10MG TABLET 10 MG PO (18:01)
[2025-03-04 18:03] VITALS: BP 104/66; PULSE 64; RESP 16; TEMP 36.7; O2SAT 98
== END 2025-03-04 18:10 | disposition home or self-care (01) ==
PROVIDERS: Emergency Provider Student in an Organized Health Care Education/Training Program
DX: L25.9 Unspecified contact dermatitis, unspecified cause (principal)
CPT/HCPCS: 99283